=== PATIENT | male | born 1990 | race Caucasian/White ===

== ENCOUNTER 2017-04-16 07:02 | Emergency (ER) | payer BC ==
[~2017-04-16] VITALS: Ht 190.5 cm; Wt 79.4 kg
[2017-04-16] MEDS ORDERED: NEOMY/BACITRA/POLYMYXIN B OINT UD PACKET TP ONE ×2 (07:30→08:01)
[2017-04-16] MEDS ORDERED: TDAP DIPH,PERTUSS,TET VAC/PF 0.5 ML DISP.SYRIN IM ONE ×2 (07:30→08:00)
--- NOTE | 2017-04-16 07:54 | NUR ---
PT IS IN ROOM #2B. DR MONROY EVALUATED THE PT.
--- NOTE | 2017-04-16 08:46 | NUR ---
pt was d/c to home. d/c instructions given to the pt.
[2017-04-16 08:48] VITALS: BP 136/88
== END 2017-04-16 08:51 | disposition home or self-care (01) ==
LOC: ER 07:02
DX: S91.302A Unspecified open wound, left foot, initial encounter (principal); V29.9XXA Motorcycle rider (driver) (passenger) injured in unspecified traffic accident, initial encounter; Y93.89 Activity, other specified; Y92.413 State road as the place of occurrence of the external cause; Y99.8 Other external cause status
CPT/HCPCS: 29515; 73630; 90471; 90715; 99284; A4663